=== PATIENT | male | born 2000 | race Caucasian/White ===

== ENCOUNTER 2021-04-17 00:10 | Emergency (ER) | payer BC ==
--- NOTE | 2021-04-17 01:28 | EDM.PDOC ---
ED HPI GENERAL MEDICAL PROBLEM - General Chief Complaint: Laceration Stated Complaint: LIP LACERATION Time Seen by Provider: 04/17/21 00:31 Source of Information: Reports: Patient History Limitations: Reports: No Limitations, Intoxication - History of Present Illness INITIAL COMMENTS - FREE TEXT/NARRATIVE: 20-year-old male presents the ED complaining of a laceration to the left lower lip. Patient has been drinking this evening, admits to being intoxicated, does not remember the event happening. Per witnesses at the scene patient was helping move a picnic table when he fell striking the picnic table on his fall from standing. According to witnesses there was no loss of consciousness, no seizure activity, no nausea or vomiting. Patient denies: Head neck or back pain, chest pain, shortness of breath, dizzy lightheaded, changed or blurred vision, misaligned bite. Positive for: Scratches to his left cheek. Left Lower Lip Pain Score (Numeric/FACES): 2 - Related Data Allergies Allergy/AdvReac Type Severity Reaction Status Date / Time No Known Allergies Allergy Verified 04/17/21 00:58 ED ROS GENERAL - Review of Systems Review Of Systems: Comprehensive ROS is negative, except as noted in HPI. ED EXAM, SKIN/RASH Exam: See Below Text/Narrative:: 20-year-old male presented to the ED complaining of a lack to his lower left lip. Patient is alert and oriented x3, GCS 4 5 6, patient appears and admits to being intoxicated, no apparent distress. Speaking in full sentences Exam Limited By: No Limitations General Appearance: Alert, WD/WN, No Apparent Distress Eye Exam: Bilateral Eye: EOMI, PERRL ([facility] psych patient is a pediatric study 15 family history of major psycho unfortunately mom had schizophrenia) Ears: Normal External Exam, Hearing Grossly Normal Nose: Normal Inspection, Normal Mucosa, No Blood Throat/Mouth: Normal Teeth, Normal Gums, Normal Voice, No Airway Compromise, Other (White plaque located on the right tonsillar area (we will test for strep), left lower lip has a full-thickness laceration through the vermilion border this is not a through and through lack into the mouth. Bleeding is controlled. Laceration is approximately 5 to 6 mm) Head: Atraumatic, Normocephalic, Facial Swelling (Minor to the left cheek), Other (2 superficial scratches to left cheek) Neck: Normal Inspection, Supple, Non-Tender, Full Range of Motion Respiratory/Chest: No Respiratory Distress, Lungs Clear, Normal Breath Sounds, No Accessory Muscle Use, Chest Non-Tender Cardiovascular: Normal Peripheral Pulses, Regular Rate, Rhythm, No Edema, No Gallop, No JVD, No Murmur, No Rub GI/Abdominal: Soft, Non-Tender, No Organomegaly, No Distention, No Mass Back Exam: Normal Inspection, Full Range of Motion. No: Muscle Spasm, Paraspinal Tenderness, Vertebral Tenderness Extremities: Normal Inspection, Normal Range of Motion, Non-Tender, No Pedal Edema, Normal Capillary Refill Neurological: Alert, Oriented, CN II-XII Intact, Normal Cognition, Normal Gait, Normal Reflexes, No Motor/Sensory Deficits Psychiatric: Normal Affect, Normal Mood, Other (Very cordial and apologetic) Skin: Warm, Dry, Intact, Normal Color, No Rash Location, Skin: Face Lymphatic: No Adenopathy ED SKIN PROCEDURES - Laceration/Wound Repair Left Lower Other Appearance: Subcutaneous, Muscle, Linear, Clean Anesthetic Type: Local Local Anesthesia - Lidocaine (Xylocaine): 1% Plain Local Anesthetic Volume: 4cc Skin Prep: Chlorhexidine (Hibiciens), Sterile Drape Exploration/Debridement/Repair: Wound Explored, Explored to Base, No Foreign Material Found, Other (Wound edges approximated, vermilion border aligned) Closed with: Sutures Lac/Wound length In cm: 1.5 Suture Size: 5-0 # of Sutures: 5 Suture Type: Other (Ethilon) Course - Vital Signs Last Recorded V/S: Last Vital Signs Temp 97.2 F 04/17/21 00:15 Pulse 118 H 04/17/21 00:15 Resp 20 04/17/21 00:15 BP 134/74 04/17/21 00:15 Pulse Ox 97 04/17/21 00:15 Departure - Departure Time of Disposition: 01:15 Disposition: Home, Self-Care 01 Condition: Good Clinical Impression: Lip laceration - Discharge Information *PRESCRIPTION DRUG MONITORING PROGRAM REVIEWED*: No *COPY OF PRESCRIPTION DRUG MONITORING REPORT IN PATIENT JONATAN: No Instructions: Concussion, Adult, Wound Care, Adult Forms: ED Department Discharge Additional Instructions: Discharge home. Your brother will wake you every hour and ask you a question. If patients status changes, return to the ER. Follow up in the clinic for suture removal in 6 days. Sepsis Event Note (ED) - Evaluation Sepsis Screening Result: No Definite Risk - Focused Exam Vital Signs: Vital Signs Temp Pulse Resp BP Pulse Ox 04/17/21 00:15 97.2 F 118 H 20 134/74 97
== END 2021-04-17 01:20 | disposition home or self-care (01) ==
LOC: LB.ED 00:10
DX: S01.511A Laceration without foreign body of lip, initial encounter (principal); W18.09XA Striking against other object with subsequent fall, initial encounter
CPT/HCPCS: 12011; 99282-25

== ENCOUNTER 2021-04-18 09:41 | Emergency (ER) | payer BC ==
[2021-04-18] MEDS ORDERED: predniSONE 10 MG Tab ONE (12:00)
--- NOTE | 2021-04-18 13:10 | EDM.PDOC ---
ED HPI GENERAL MEDICAL PROBLEM - General Chief Complaint: ENT Problem Stated Complaint: SORE THROAT Time Seen by Provider: 04/18/21 09:58 Source of Information: Reports: Patient History Limitations: Reports: No Limitations - History of Present Illness INITIAL COMMENTS - FREE TEXT/NARRATIVE: 20-year-old male presents to the ED for the second day after he had a lip sutured. Complaining of a sore throat. Previous ER visit it was noted that he had a white plaque on the right side of his hypopharynx a rapid strep was done at that time that came back negative. Patient returned today saying that his sore throat had gotten exponentially worse. Patient is unable to swallow food, difficulty swallowing liquids. Patient states that his glands are swollen on both sides of his neck. Pain described as a generalized soreness, 8/10 on the pain scale. Nothing is been found to be palliative, talking, swallowing, coughing or provocative. Patient has been running a low-grade fever for the past 2 days. Patient positive for: Heavy alcohol use prior day, trauma to his face fall from standing into a picnic table without loss of consciousness. Patient is negative for: Chest pain, shortness of breath, syncope/presyncope, nausea vomiting, constipation diarrhea, headache, blurred vision, rash. - Related Data Allergies Allergy/AdvReac Type Severity Reaction Status Date / Time No Known Allergies Allergy Verified 04/18/21 09:58 Home Meds: Home Meds NK [No Known Home Meds] 04/18/21 [History] Past Medical History - Past Health History Medical/Surgical History: Denies Medical/Surgical History Social & Family History - Family History Family Medical History: No Pertinent Family History - Recreational Drug Use Recreational Drug Use: No ED ROS ENT - Review of Systems Review Of Systems: Comprehensive ROS is negative, except as noted in HPI. ED EXAM, ENT - Physical Exam Exam: See Below Text/Narrative:: 20-year-old male presents in semifowler position in bay 2. Patient in minor distress. Skin appears to be flushed, swollen around cheeks and jaw, dry. Patient is alert and oriented 3/3 GCS 4 5 6. Speaking in full sentences. Exam Limited By: No Limitations General Appearance: Alert, WD/WN, No Apparent Distress Eye Exam: Bilateral Eye: EOMI, PERRL Ears: Normal External Exam, Normal Canal, Hearing Grossly Normal, Normal TMs Nose: Normal Inspection, Normal Mucousa, No Blood Mouth/Throat: Hoarse Voice, Muffled Voice, Throat Pain, Tonsillar Exudates (White plaque covering tonsils bilateral and portions of the hypopharynx). No: Peritonsillar Mass, Tonsillar Swelling, Uvular Deviation, Uvular Edema Head: Facial Swelling, Other (Laceration repaired with sutures last night by Danny GORDON) Neck: Lymphadenopathy (R), Lymphadenopathy (L), Other (Tender to palpation bilateral over the tonsillar lymph node area with edema) Respiratory/Chest: No Respiratory Distress, Lungs Clear, Normal Breath Sounds, No Accessory Muscle Use, Chest Non-Tender Cardiovascular: Normal Peripheral Pulses, Regular Rate, Rhythm, No Edema, No Gallop, No JVD, No Murmur, No Rub GI/Abdominal: Normal Bowel Sounds, Soft, Non-Tender, No Organomegaly, No Distention, No Abnormal Bruit, No Mass. No: Guarding, Rigid, Tender, Splenomegaly (Male) Exam: Deferred Rectal (Males) Exam: Deferred Back: No: CVA Tenderness (R), CVA Tenderness (L) Extremities: Normal Inspection, Normal Range of Motion, Non-Tender, No Pedal Edema, Normal Capillary Refill Neurological: Alert, Oriented, CN II-XII Intact, Normal Cognition, No Motor/Sensory Deficits Psychiatric: Normal Affect, Normal Mood Skin: Other (Warm, dry, flushed around the facial area) Lymphatic: Adenopathy (Tonsillar, submandibular) Course - Vital Signs Last Recorded V/S: Last Vital Signs Temp 99 F 04/18/21 09:59 Pulse 101 H 04/18/21 09:59 Resp 18 04/18/21 09:59 BP 132/83 04/18/21 09:59 Pulse Ox 97 04/18/21 09:59 - Orders/Labs/Meds Orders: Active Orders 24 hr Category Date Time Status CULTURE STREP A CONFIRMATION [RM] Stat Lab 04/18/21 09:59 Results STREP SCRN A RAPID W CULT CONF [RM] Stat Lab 04/18/21 09:59 Results Labs: Laboratory Tests 04/18/21 04/18/21 Range/Units 10:04 11:34 Monoscreen Positive H (NEGATIVE) SARS-CoV-2 RNA (ALTAGRACIA) Negative (NEGATIVE) Departure - Departure Time of Disposition: 11:00 Disposition: Home, Self-Care 01 Condition: Good Clinical Impression: Mononucleosis - Discharge Information *PRESCRIPTION DRUG MONITORING PROGRAM REVIEWED*: No *COPY OF PRESCRIPTION DRUG MONITORING REPORT IN PATIENT JONATAN: No Instructions: Infectious Mononucleosis, [id number], Prednisone tablets Referrals: PCP,None [Primary Care Provider] - Forms: ED Department Discharge Additional Instructions: No trauma to abdomen, no rough housing Rest Drink plenty of fluids Ibuprofen for pain as need Expect to be sick for at least a month Take prednisone as needed Sepsis Event Note (ED) - Evaluation Sepsis Screening Result: No Definite Risk - Focused Exam Vital Signs: Vital Signs Temp Pulse Resp BP Pulse Ox 04/18/21 09:59 99 F 101 H 18 132/83 97 - My Orders Last 24 Hours: My Active Orders 04/18/21 09:59 CULTURE STREP A CONFIRMATION [RM] Stat STREP SCRN A RAPID W CULT CONF [RM] Stat - Assessment/Plan Last 24 Hours: My Active Orders 04/18/21 09:59 CULTURE STREP A CONFIRMATION [RM] Stat STREP SCRN A RAPID W CULT CONF [RM] Stat Assessment:: Assessment: 1 sore throat 2 subjective fever 3 adenopathy 4 difficulty swallowing 20-year-old male presents today with chief complaint of sore throat patient is nontoxic, there is no trismus, peritonsillar swelling, drooling, stridor, evidence of dehydration clinically. Findings are not consistent with peritonsillar abscess, retropharyngeal abscess, epiglottitis or Ludewig's angina. Patient was negative for rapid strep 2 consecutive days. Patient was positive for Monospot. Patient given the diagnosis of infectious mononucleosis patient was provided with instructions regarding supportive care and advised to return immediately if he developed any difficulty breathing severe sore throat pain or headache, dehydration or any other new or worsening symptoms, Plan: Plan: ABC, history, exam, rapid strep, Monospot, patient discharged with a prescription for a prednisone taper to help patient swallow and be able to eat (30 mg first day, 20 mg second day, 10 mg daily for days 3 through 7), spoke with both patient and patient's mother regarding treatment plan and diagnosis all questions were answered to their satisfaction. Both patient and mother agreed to treatment plan, both understood the inherent risks of splenic rupture due to roughhouse or trauma to the abdomen, patient to follow-up with primary care provider at [facility]. Patient discharged in stable condition
== END 2021-04-18 12:20 | disposition home or self-care (01) ==
LOC: LB.ED 09:41
DX: B27.90 Infectious mononucleosis, unspecified without complication (principal); Z20.822 Contact with and (suspected) exposure to COVID-19
CPT/HCPCS: 36415; 86308; 87081; 87430; 87635; 99283; J7512; U0002